=== PATIENT | female | born 1955 | race Caucasian/White ===

== ENCOUNTER 2017-08-13 20:45 | Emergency (ER) | payer OTHER ==
[~2017-08-13] VITALS: Ht 170.2 cm; Wt 62.6 kg
[2017-08-13] MEDS ORDERED: ALTACE10 MG PO (21:02)
[2017-08-13] MEDS ORDERED: KEFLEX500 M1 PO (21:05)
[2017-08-13] MEDS ORDERED: ACETAMINOPHEN-1 EAC1 PO (21:24)
[2017-08-13] MEDS ORDERED: IBUPROFEN 800800 M1 PO (21:50)
[2017-08-13 22:13] VITALS: BP 144/55
== END 2017-08-13 22:14 | disposition home or self-care (01) ==
LOC: M.ERS 20:45
DX: S91.312A Laceration without foreign body, left foot, initial encounter (principal); W22.8XXA Striking against or struck by other objects, initial encounter; Y93.89 Activity, other specified; Y92.89 Other specified places as the place of occurrence of the external cause; Y99.8 Other external cause status